=== PATIENT | male | born 1960 | race Two or more races ===

== ENCOUNTER → 2025-05-10 07:04 | Outpatient (CLI) | payer OTHER ==
[~2025-05-10 07:04] MED LIST: BENADRYL50 MG; TRANXENE; ZYPREXA10 MG
== END | disposition home or self-care (01) ==
LOC: NUCLEAR 05-03 07:00
PROVIDERS: ATTEND Specialist
DX: N25.81 Secondary hyperparathyroidism of renal origin (principal); D35.1 Benign neoplasm of parathyroid gland
CPT/HCPCS: 78070; A9500

== ENCOUNTER 2025-05-18 09:56 | Outpatient (CLI) | payer OTHER | END 2025-05-18 09:57 | disposition home or self-care (01) | LOC: NUCLEAR 09:56 | PROVIDERS: ATTEND Specialist | DX: M81.0 Age-related osteoporosis without current pathological fracture (principal) ==